=== PATIENT | male | born 1960 | race Caucasian/White ===

== ENCOUNTER 2020-07-04 11:07 | Emergency (ER) | payer MEDICAID, OTHER ==
[~2020-07-04] VITALS: Ht 183 cm; Wt 82.0 kg
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
--- NOTE | 2020-07-04 12:27 | Diagnostic Imaging Report ---
INDICATION: Left lower quadrant pain. FINDINGS: The lungs are clear. Rib irregularities posterolaterally bilaterally are believed to be callus from old healed injuries but correlate with any new injury or new trauma. No infiltrate, effusion or pneumothorax. No overt failure pattern. IMPRESSION: Likely old rib deformities with callus. No acute appearing cardiopulmonary abnormality. Dictated by: Dictated on workstation # [id number]
[2020-07-04 12:30] LABS: BASOPHILS % (AUTO) 0 % (0-10)
[2020-07-04] MEDS ORDERED: NS IV 1000 ML 1,000 ML IV SCH (12:30)
[2020-07-04 12:32] LABS: EOSINOPHILS # (AUTO) 0.1 10^3/uL (0.0-0.3); EOSINOPHILS % (AUTO) 1 % (0-10); HEMATOCRIT 45 % (40-54); HEMOGLOBIN 15.2 g/dL (13.3-17.7); LYMPHOCYTES # (AUTO) 1.2 10^3/uL (1.0-4.0); LYMPHOCYTES % (AUTO) 13 % (12-44); MEAN CORPUSCULAR HEMOGLOBIN 33 pg (25-34); MEAN CORPUSCULAR HGB CONC 34 g/dL (32-36); MEAN CORPUSCULAR VOLUME 97 fL (80-99); MEAN PLATELET VOLUME 11.6 fL (9.0-12.2); MONOCYTES # (AUTO) 1.5 10^3/uL (0.0-1.0); MONOCYTES % (AUTO) 17 % (0-12); NEUTROPHILS % (AUTO) 68 % (42-75); PLATELET COUNT 150 10^3/uL (130-400); WHITE BLOOD COUNT 8.9 10^3/uL (4.3-11.0)
[2020-07-04 12:34] LABS: CLARITY,URINE CLEAR; COLOR,URINE AMBER; GLUCOSE, URINE (UA) NEGATIVE (NEGATIVE); KETONES,URINE TRACE (NEGATIVE); LEUKOCYTE ESTERASE ,URINE NEGATIVE (NEGATIVE); NITRITE,URINE POSITIVE (NEGATIVE); PH,URINE 6.5 (5-9); PROTEIN,URINE 3+ (NEGATIVE)
[2020-07-04 12:44] LABS: BACTERIA,URINE FEW /HPF; BILIRUBIN,URINE 2+ (NEGATIVE); SQUAMOUS EPITHELIAL CELL,UR RARE /HPF; WBC,URINE 0-2 /HPF
[2020-07-04 12:44] LABS: ALBUMIN 4.1 GM/DL (3.2-4.5); CHLORIDE 95 MMOL/L (98-107); SODIUM 131 MMOL/L (135-145)
[2020-07-04 12:45] LABS: AMPHETAMINE SCREEN, URINE NEGATIVE (NEGATIVE); BARBITURATE SCREEN URINE NEGATIVE (NEGATIVE); BENZODIAZEPINES SCREEN URINE POSITIVE (NEGATIVE); CANNABINOID SCREEN, URINE POSITIVE (NEGATIVE); COCAINE SCREEN URINE NEGATIVE (NEGATIVE); METHADONE STAT NEGATIVE (NEGATIVE); METHAMPHETAMINE SCREEN URINE S NEGATIVE (NEGATIVE); OPIATE SCREEN URINE POSITIVE (NEGATIVE); OXYCODONE STAT POSITIVE (NEGATIVE); PROPOXYPHENE STAT NEGATIVE (NEGATIVE); TRICYCLIC ANTIDEPRESSANTS SCRE NEGATIVE (NEGATIVE)
[2020-07-04 12:46] LABS: AMYLASE 43 U/L (25-125); CALCIUM 9.3 MG/DL (8.5-10.1)
[2020-07-04 12:47] LABS: GLUCOSE 108 MG/DL (70-105); TOTAL PROTEIN 8.4 GM/DL (6.4-8.2)
[2020-07-04 12:48] LABS: CARBON DIOXIDE 21 MMOL/L (21-32)
[2020-07-04 12:49] LABS: BILIRUBIN,TOTAL 1.2 MG/DL (0.1-1.0)
[2020-07-04 12:50] LABS: ALKALINE PHOSPHATASE 59 U/L (40-136)
[2020-07-04 12:51] LABS: CREATININE SERUM 0.61 MG/DL (0.60-1.30); GFR ESTIMATED > 60
[2020-07-04 12:52] LABS: BUN/CREATININE RATIO 18
[2020-07-04 12:53] LABS: MAGNESIUM 1.5 MG/DL (1.6-2.4)
[2020-07-04 12:54] LABS: ALANINE AMINOTRANSFERASE 32 U/L (0-55); LIPASE 14 U/L (8-78)
[2020-07-04 12:55] LABS: CREATINE KINASE 30 U/L (30-200)
[2020-07-04] MEDS ORDERED: NS 100 ML (IVPB) BAG IV ONE (13:00)
[2020-07-04] MEDS ORDERED: IOHEXOL 350 MG/ML 100 ML (OMNIPAQUE 350) VIAL IV ONE (13:00)
[2020-07-04] MEDS ORDERED: CATHETER FLUSH 10 ML SYR IV PRN (13:00)
[2020-07-04] MEDS ORDERED: HOLD METFORMIN - RECEIVED CONTRAST 20 ML VIAL IV SCH (13:00)
[2020-07-04 13:01] LABS: CREATINE KINASE MB 0.4 NG/ML (<6.6)
[2020-07-04 13:02] LABS: ACETAMINOPHEN < 10 UG/ML (10-30)
[2020-07-04] MEDS ORDERED: MAGNESIUM 1 GM/100 ML IVPB 100 ML IV SCH (13:15)
[2020-07-04] MEDS ORDERED: cefTRIAXone FOR IV USE 1,000 MG in WATER (STERILE) FOR INJECTION 10 ML IV ONE (13:15)
[2020-07-04] MEDS ORDERED: KETOROLAC 30 MG/ML VIAL IVP ONE (13:30)
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
[2020-07-04] MEDS ORDERED: LABETALOL HCL 20 MG/4 ML VIAL IV ONE (14:00)
[2020-07-04] MEDS ORDERED: PRD20T PO (14:12)
[2020-07-04] MEDS ORDERED: LIDO1ADH66 TP (14:12)
[2020-07-04] MEDS ORDERED: LORazepam INJ 2 MG/ML (ATIVAN) VIAL IVP PRN (14:15)
[2020-07-04 14:59] VITALS: BP 155/106
== END 2020-07-04 14:59 | disposition home or self-care (01) ==
LOC: ER 11:11
DX: R10.32 Left lower quadrant pain (principal); Z20.828 Contact with and (suspected) exposure to other viral communicable diseases
CPT/HCPCS: 71045; 71260; 74177; 80053; 80306; 81000; 82150; 82550; 82553; 83690; 83735; 83874; 85025; 85610; 85730; 93041; 99284; G0480 ×2; U0002; 36415; 80320; 80329; 87635